=== PATIENT | male | born 2000 | race Caucasian/White ===

== ENCOUNTER 2021-09-30 16:51 | Emergency (ER) | payer OTHER ==
[~2021-09-30] VITALS: Ht 185.4 cm; Wt 84.0 kg
[2021-09-30] MEDS ORDERED: DICL50TA7 PO (17:33)
[2021-09-30] MEDS ORDERED: METHOCARBAMOL 750MG TABLET PO SCH (19:15)
[2021-09-30] MEDS ORDERED: MORPHINE SULFATE 10 MG/ML CPJ IM ONE (19:15)
[2021-09-30] MEDS ORDERED: KETOROLAC 60MG/2ML VIAL IM ONE (19:15)
[2021-09-30] MEDS: LIDOCAINE 5% PATCH TOP SCH ×2 (19:28→19:29)
[2021-09-30] MEDS ORDERED: MORPHINE SULFATE 10 MG/ML CPJ IM NR (19:30)
[2021-09-30] MEDS ORDERED: MORPHINE SULFATE 2 MG/ML CPJ (NOT FOR IM USE) IV NR (19:30)
[2021-09-30 20:25] VITALS: BP 128/87
[2021-09-30] MEDS ORDERED: LIDO1ADH23 TP (20:38)
[2021-09-30] MEDS ORDERED: METH-653 MT (20:38)
[2021-09-30] MEDS ORDERED: TOPUD PO (20:38)
== END 2021-09-30 21:11 | disposition home or self-care (01) ==
LOC: ER 16:51
DX: M54.50 Low back pain, unspecified (principal); G89.29 Other chronic pain; Z88.0 Allergy status to penicillin
CPT/HCPCS: 96372; 99284; J1885; J2270